=== PATIENT | male | born 1990 | race African-American/Black ===

== ENCOUNTER 2017-02-15 12:40 | Inpatient (IN) | payer SELFPAY ==
[~2017-02-15] VITALS: Ht 182.9 cm; Wt 65.1 kg
[~2017-02-15 12:40] MED LIST: AUGM875 PO; Z.0.NO CURRENT MEDS
[2017-02-15 12:42] VITALS: BP 121/70; PULSE 83; RESP 18; TEMP 98; O2SAT 99
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
[2017-02-15] MEDS ORDERED: AMPICILLIN-SULBACTAM INJ 3 GM in SODIUM CHLORIDE 0.9% INJ 100 ML IV ONE (15:00)
[2017-02-15] MEDS ORDERED: TETANUS/DIPHTHERIA TOXOID ADULT 0.5 ML VIAL IM ONE (15:00)
[2017-02-15 15:34] VITALS: BP 109/57; PULSE 67; RESP 18; O2SAT 100
[2017-02-15 16:00] LABS: AUTOMATED NEUTROPHIL # 2.9 TH/MM3 (1.8-7.7); BASOPHIL % 0.8 % (0.0-2.0); EOSINOPHIL % 0.8 % (0.0-4.0); HEMATOCRIT 38.3 % (39.0-51.0); HEMO FLAGS DIFF FINAL; LYMPH % 29.9 % (9.0-44.0); LYMPHOCYTE # 1.4 TH/MM3 (1.0-4.8); MEAN CORPUSCULAR HEMOGLOBIN 29.5 PG (27.0-34.0); MEAN CORPUSCULAR HGB CONC 32.1 % (32.0-36.0); MONO % 6.9 % (0.0-8.0); NEUT % 61.6 % (16.0-70.0); PLATELET COUNT 167 TH/MM3 (150-450); RED BLOOD COUNT 4.16 MIL/MM3 (4.50-5.90); RED CELL DISTRIBUTION WIDTH 13.5 % (11.6-17.2); WHITE BLOOD COUNT 4.7 TH/MM3 (4.0-11.0)
[2017-02-15 16:18] LABS: BICARBONATE 30.8 MEQ/L (21.0-32.0); POTASSIUM 3.9 MEQ/L (3.5-5.1)
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
[2017-02-15 16:23] LABS: APTT (PATIENT) 30.2 SEC (24.3-30.1); PROTHROMBIN TIME - PATIENT 11.1 SEC (9.8-11.6)
[2017-02-15] MEDS ORDERED: Vancomycin Consult Pharmacy 1 EA OTHER SCH (17:45)
[2017-02-15 18:30] VITALS: BP 133/86; PULSE 60; RESP 16; TEMP 97.7; O2SAT 99
[2017-02-15] MEDS ORDERED: ACETAMINOPHEN/CODEINE 300 MG/30 MG TAB PO PRN (19:15)
[2017-02-15 20:00] VITALS: BP 120/74; PULSE 67; RESP 20; TEMP 97.3; O2SAT 100
[2017-02-15] MEDS ORDERED: VANCOMYCIN 1,000 MG/NS 250 ML IV SCH ×2 (20:00)
[2017-02-15] MEDS: CIPROFLOXACIN 400 MG PREMIX 200 ML IV SCH (22:28)
[2017-02-16 00:09] VITALS: BP 124/80; PULSE 74; RESP 20; TEMP 98.1; O2SAT 100
[2017-02-16 04:00] VITALS: BP 112/71; PULSE 62; RESP 20; TEMP 98.3; O2SAT 100
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
[2017-02-16] MEDS: CIPROFLOXACIN 400 MG PREMIX 200 ML IV SCH (06:48)
--- NOTE | 2017-02-16 09:03 | PD.AMA ---
Against Medical Advice Note Pt Condition on Discharge: Deteriorating AMA Statement Patient Polo Romo, JACIEL has decided to leave the hospital against medical advice. This patient has the capacity to refuse care and understands the risks of leaving, including permanent disability and/or , and has had an opportunity to ask questions about his condition. The patient has been informed that he may return for care at any time, and follow up has been arranged/ advised. Mateo Bowman MD Feb 16, 2017 09:03
[2017-02-17] MEDS ORDERED: PHARMACY ORDERED LAB ONE (07:45)
== END 2017-02-16 08:03 | disposition left against medical advice (07) | DRG 563 ==
LOC: NEPD 12:40 → NEDA 16:09 → N04B 18:15
PROVIDERS: ADMIT Hospitalist; ATTEND Hospitalist
DX: S62.291B Other fracture of first metacarpal bone, right hand, initial encounter for open fracture (principal); L03.113 Cellulitis of right upper limb; F12.90 Cannabis use, unspecified, uncomplicated; S61.401A Unspecified open wound of right hand, initial encounter; X95.9XXA Assault by unspecified firearm discharge, initial encounter
CPT/HCPCS: 73120; 80048; 85025; 85610; 85730; 90471; 90714; 96365; J0295; J0744; J3370; J7050

== ENCOUNTER 2017-03-10 14:21 | Emergency (ER) | payer SELFPAY ==
[~2017-03-10] VITALS: Ht 185.4 cm; Wt 68.0 kg
[2017-03-10 14:23] VITALS: BP 122/79; PULSE 80; RESP 12; TEMP 98.1; O2SAT 99
[2017-03-10] MEDS ORDERED: MORPHINE SULFATE 4 MG/ML INJ IV PUSH ONE (16:15)
[2017-03-10] MEDS ORDERED: PIPERACIL-TAZO 3.375 GM PREMIX 50 ML IV ONE (16:15)
[2017-03-10] MEDS ORDERED: ONDANSETRON HCL 4 MG/2 ML VIAL IV PUSH ONE (16:15)
[2017-03-10 16:28] LABS: BASOPHIL % 0.4 % (0.0-2.0); EOSINOPHIL # 0.1 TH/MM3 (0-0.4); EOSINOPHIL % 0.9 % (0.0-4.0); HEMATOCRIT 41.9 % (39.0-51.0); HEMOGLOBIN 13.3 GM/DL (13.0-17.0); LYMPH % 25.3 % (9.0-44.0); LYMPHOCYTE # 1.6 TH/MM3 (1.0-4.8); MEAN CELL VOLUME 91.4 FL (80.0-100.0); MEAN CORPUSCULAR HGB CONC 31.7 % (32.0-36.0); MEAN PLATELET VOLUME 9.2 FL (7.0-11.0); MONO % 8.4 % (0.0-8.0); MONOCYTE # 0.5 TH/MM3 (0-0.9); PLATELET COUNT 180 TH/MM3 (150-450); RED BLOOD COUNT 4.59 MIL/MM3 (4.50-5.90); RED CELL DISTRIBUTION WIDTH 13.7 % (11.6-17.2); WHITE BLOOD COUNT 6.2 TH/MM3 (4.0-11.0)
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
[2017-03-10 16:45] LABS: BICARBONATE 30.2 MEQ/L (21.0-32.0); BLOOD UREA NITROGEN 12 MG/DL (7-18); C-REACTIVE PROTEIN LESS THAN 0.29 MG/DL (0.00-0.30); CALCIUM 9.5 MG/DL (8.5-10.1); CHLORIDE 106 MEQ/L (98-107); CREATININE 1.06 MG/DL (0.60-1.30); GLOMERULAR FILTRATION RATE 104 ML/MIN (>89); GLUCOSE,RANDOM 52 MG/DL (74-106); MAGNESIUM 2.5 MG/DL (1.5-2.5); SODIUM (NA) 141 MEQ/L (136-145)
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
[2017-03-10] MEDS ORDERED: DICL75TA PO (18:05)
[2017-03-10] MEDS ORDERED: HYDR-3533 PO (18:05)
== END 2017-03-10 19:38 | disposition home or self-care (01) ==
LOC: NEPC 14:21
DX: S62.511A Displaced fracture of proximal phalanx of right thumb, initial encounter for closed fracture (principal); X95.9XXA Assault by unspecified firearm discharge, initial encounter
CPT/HCPCS: 73140; 80048; 83735; 85025; 86140; 87040; 96365; 96375; 99284; J2270; J2405; J2543; L3808